=== PATIENT | female | born 1975 | race Caucasian/White ===

== ENCOUNTER 2020-01-21 00:23 | Emergency (ER) | payer SELFPAY ==
--- NOTE | 2020-01-21 00:34 | ED.AMS ---
HPI - Altered Mental Status General Chief Complaint: Alcohol Stated Complaint: alchol Source: patient Mode of arrival: EMS Limitations: intoxication History of Present Illness HPI narrative: 44 y.o. became intoxicated partying tonight. She got to the point of being in and out of consciousness . Ambulance personal aroused her on a outdoor bench, she stumbled with assistance to the ambulance, but was completely disoriented. En route she vomited and was incontinent of urine. She recalls events from earlier in the evening but does not recall events after drinking 2 - 3 beers. She typically drinks 1 - 2 beers once a month. She denies falling or hitting or head. Denies headache. No seizure disorder. She has migraine headaches, takes trazadone prn. Did not take it last PM. She takes topiramate BID (per pt). Related Data Home Medications Medication Instructions Recorded Confirmed multivitamin 1 tablet PO DAILY 01/21/20 01/21/20 paroxetine HCl 30 mg PO DAILY 01/21/20 01/21/20 sumatriptan succinate 100 mg PO PRN PRN 01/21/20 01/21/20 topiramate 50 mg PRN PRN 01/21/20 01/21/20 trazodone 50 mg PO HS 01/21/20 01/21/20 Allergies Allergy/AdvReac Type Severity Reaction Status Date / Time No Known Drug Allergies Allergy Unknown Verified 08/08/14 11:40 Review of Systems Constitutional: Constitutional: Denies chills and Denies fever(s) Eyes: Eyes: Denies change in vision ENT: Denies dizziness Cardiovascular: Cardiovascular: Denies chest pain Respiratory: Respiratory: Denies dyspnea Gastrointestinal: Gastrointestinal: Denies abdominal pain and Denies diarrhea Genitourinary: Genitourinary: Denies dysuria Comments: TAkes OCPs daily which has resulted in amenorrhea for months. 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 Speech is slurred. Const: General: cooperative and no acute distress; No alert Nutritional Appearance: well nourished Orientation/consciousness: patient oriented x3 Limitations: no limitations HENMT: Head: normal to inspection, atraumatic, no abrasions, no hematomas, no lacerations, no raccoon eyes and no scalp tenderness General nose exam: Normal external nose present and Normal nares present Face and sinus: sinuses nontender Mouth: Yes Normal oral and palatal mucosa present and Yes moist mucous membranes Throat: posterior oropharynx normal Eyes: General: appearance normal, both eyes and all related structures Pupils: Equal, round and reactive pupils present and Other pupil findings (approximately 4 mm) EOM: EOMs intact bilaterally and No Nystagmus present Neck: Neck: normal visual inspection, no lymphadenopathy, nontender and other (supple) Resp: Effort & Inspection: normal respiratory effort Auscultation: clear to auscultation bilaterally Cardio: Rate: regular rate Rhythm: regular rhythm Heart sounds: no murmurs GI: Inspection: normal to inspection GI Palp: No abdominal tenderness Back/Spine/Pelvis: Back: no CVA tenderness Cervical Spine: cervical ROM normal and No Cervical spine tenderness Thoracic/Lumbar Spine: No thoracic and lumbar spine normal to inspection Skin: General skin exam: normal color and no rashes or lesions noted Neuro: General: patient oriented x3 Motor exam (neuro): 5/5 motor strength present throughout Sensory Exam: normal sensation Course Course Emergency Course: Does not remember riding in the ambulance. At 2:41 alert, oriented, walking to b.r. without ataxia. Labs reviewed, Eto
[2020-01-21 00:41] VITALS: BP 97/63; PULSE 89; RESP 20; TEMP 36.4; O2SAT 100
[2020-01-21] MEDS: ONDANSETRON INJ 4 MG/2 ML VIAL IV PUSH (00:51)
[2020-01-21 00:59] VITALS: BP 103/75; PULSE 80; RESP 18; O2SAT 100
--- NOTE | 2020-01-21 01:16 | PC.NURSE ---
Pt.using her cell phone to try to reach family members for ride when d/c home.
[2020-01-21 01:17] LABS: Anion Gap 14.6 mmol/L (7-16); Blood Urea Nitrogen 10 mg/dL (7-18); Carbon Dioxide 28 mmol/L (21-32); Chloride 108 mmol/L (98-108); Estimated CRCL calculation 51 ml/min; Estimated Glomerular Filt Rate > 60; Glucose 98 mg/dL (70-99); Osmolality Calculated 303 mOsm/kg (285-295); Potassium 3.6 mmol/L (3.5-5.1); Sodium 147 mmol/L (136-145)
[2020-01-21 01:18] LABS: Pregnancy On Board Control Positive; Urine Pregnancy Test Negative
[2020-01-21 01:21] LABS: Specific Gravity Ur < 1.005 (1.010-1.035)
[2020-01-21 01:22] LABS: Amphetamine Screen Urine Negative (Negative); Barbiturate Screen Urine Negative (Negative); Benzodiazepines Screen Urine Negative (Negative); Cannabinoid Screen Urine Negative (Negative); Cocaine Screen Urine Negative (Negative); Methadone Screen Urine Negative (Negative); Opiate Screen Urine Negative (Negative); Phencyclidine Screen Urine Negative (Negative)
[2020-01-21 01:26] LABS: Ethanol 218 mg/dL (0-6)
--- NOTE | 2020-01-21 02:15 | PC.NURSE ---
0125 Lab critical value received on alcohol and ERP informed. Will observe and run fluids for next several hrs. and d/c home in AM. Pt. alert, cooperative c POC and trying to find ride home. Pt. resting VSS.
[2020-01-21 02:16] VITALS: BP 105/65; PULSE 80; RESP 18; O2SAT 100
[2020-01-21 02:45] VITALS: BP 110/65; PULSE 75; RESP 20; O2SAT 100
== END 2020-01-21 02:50 | disposition home or self-care (01) ==
PROVIDERS: Emergency Provider Family Medicine
DX: F10.920 Alcohol use, unspecified with intoxication, uncomplicated (principal)
CPT/HCPCS: 36415; 80048; 80307; 81025; 96372; 99283; J2405

== ENCOUNTER 2024-05-03 13:52 | Outpatient (CLI) | payer BC, SELFPAY ==
[2024-05-03 14:15] LABS: Basophils Percent Auto 0.5 % (0.2-1.2); Eosinophils Absolute Auto 0.1 K/mm3 (0-0.3); Eosinophils Percent Auto 1.3 % (0-4.4); Hematocrit 42.7 % (37.0-47.0); Hemoglobin 14.4 g/dL (12.0-15.0); Immature Granulocyte Absolute 0.02 K/mm3 (0.00-0.031); Immature Granulocyte Percent A 0.3 % (0-0.5); Lymphocytes Absolute Auto 1.41 K/mm3 (0.9-3.2); Lymphocytes Percent Auto 22.7 % (18.3-44.2); Mean Corpuscular HGB Conc 33.7 g/dl (32-36); Mean Corpuscular Hemoglobin 31.6 pg (26-34); Mean Corpuscular Volume 93.8 fl (80-100); Mean Platelet Volume 9.9 fl (7.4-10.4); Monocytes Absolute Auto 0.4 K/mm3 (0.1-0.6); Monocytes Percent Auto 5.6 % (2.6-8.5); Neutrophils Absolute Auto 4.3 K/mm3 (1.3-6.7); Neutrophils Percent Auto 69.6 % (45.5-73.1); Platelet Count Result 187 k/mm3 (150-375); Red Blood Count 4.55 M/mm3 (4.2-5.4); Red Cell Distribution Width 12.4 % (11.5-14.5); White Blood Count 6.2 K/mm3 (4.5-10.0)
[2024-05-03 14:26] LABS: Alanine Aminotransferase 14 U/L (6-35); Albumin Level 4.3 g/dL (3.5-5.1); Alkaline Phosphatase 59 U/L (38-126); Anion Gap 6 mmol/L (4-12); Aspartate Amino Transferase 24 U/L (14-36); Bilirubin,Total 0.8 mg/dL (0.2-1.3); Blood Urea Nitrogen 13 mg/dL (7-17); Calcium 8.7 mg/dL (8.4-10.2); Carbon Dioxide 24 mmol/L (22-30); Chloride 111 mmol/L (98-107); Estimated Glomerular Filt Rate 59; Glucose 93 mg/dL (65-110); Potassium 3.8 mmol/L (3.4-5.0); Sodium 141 mmol/L (137-145)
[2024-05-03 17:56] LABS: Free T4 Free Thyroxine 0.84 ng/mL (0.78-2.19); Vitamin D 25 Hydroxy 49.3 ng/mL
== END 2024-05-03 13:53 | disposition home or self-care (01) ==
LOC: ANHLAB 13:54
PROVIDERS: PCP Family Medicine; Visit Provider Family Medicine
DX: E55.9 Vitamin D deficiency, unspecified (principal); R53.83 Other fatigue
CPT/HCPCS: 36415; 80053; 82306; 84439; 84443; 85025

== ENCOUNTER 2024-07-11 12:35 | Emergency (ER) | payer BC, SELFPAY ==
[2024-07-11 12:42] VITALS: BP 121/78; PULSE 95; RESP 18; TEMP 37.2; O2SAT 99
--- NOTE | 2024-07-11 13:38 | ED.GENADULT ---
HPI - General Adult General Chief complaint: Skin/Abscess/Foreign Body Stated complaint: Rash on arms and legs Source: patient Mode of arrival: ambulatory Limitations: no limitations History of Present Illness HPI narrative: Patient presents for evaluation of a pruritic and painful rash to the extremities x4. Symptom onset 6 days ago. No new lotions, soaps, detergents, topical products, foods or medications. She denies any fever, chills, nausea, vomiting, difficulty breathing/swallowing, cough, SOB or other infectious symptoms. No history of similar symptoms. No one around her has similar symptoms. She has not tried any therapies to assist with her symptoms. Related Data Home Medications Medication Instructions Recorded Confirmed norethindrone (contraceptive) 0.35 0.35 mg PO DAILY 02/18/23 06/15/24 mg tablet Allergies Allergy/AdvReac Type Severity Reaction Status Date / Time No Known Allergies Allergy Unverified 06/15/24 11:43 Review of Systems Review of Systems: CONSTITUTIONAL: Denies fever, chills, or sweats. EYES: Denies visual changes, redness, or discharge. ENT: Denies rhinorrhea, congestion, sore throat, or otalgia. CARDIOVASCULAR: Denies chest pain, palpitations, or edema. RESPIRATORY: Denies cough or dyspnea. GASTROINTESTINAL: Denies abdominal pain, nausea, vomiting, or diarrhea. GENITOURINARY: Denies dysuria or hematuria. SKIN: Reports pruritic and painful rash to the extremities x4. MUSCULOSKELETAL: Denies back pain, joint pain, or myalgia. NEUROLOGIC: Denies headache, numbness, dizziness, or weakness. PSYCHIATRIC: Denies anxiety or depression. 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 HEAD: Normocephalic, atraumatic. EYES: PERRLA and EOMI. ENT: Nares clear, no rhinorrhea or epistaxis. Mucous membranes moist. Oropharynx without tonsillar hypertrophy exudate or other lesions. Bilateral TMs pearly trimble nonbulging NECK: Supple. No adenopathy or masses. No carotid bruits or JVD CHEST: Clear to auscultation. No respiratory distress. No wheezes rales or rhonchi HEART: Regular rate and rhythm. No murmur heard. Normal peripheral pulses. ABDOMEN: Soft, nontender, nondistended, normal active bowel sounds. EXTREMITIES: Normal range of motion. No edema. SKIN: There is a pinpoint erythematous rash to the bilateral extremities. Petechiae noted to bilateral extremities NEURO: No focal deficits. Alert and oriented x3. PSYCH: Normal mood and affect. Course Course Emergency Course: This is a 49-year-old female who presented for evaluation of a painful pruritic rash to the extremities x4. Etiology unclear. Discussed options for treatment and elected to proceed with oral steroids. Also provider
== END 2024-07-11 13:49 | disposition home or self-care (01) ==
PROVIDERS: Emergency Provider Nurse Practitioner; PCP Family Medicine
DX: R21 Rash and other nonspecific skin eruption (principal)
CPT/HCPCS: 99213; G0463

== ENCOUNTER 2025-03-05 12:55 | Outpatient (CLI) | payer OTHER, SELFPAY ==
--- NOTE | ~2025-03-05 | MM_ITS ---
EXAMINATION: MM screening mack BI w raad HISTORY: Screening TECHNIQUE: Craniocaudal and mediolateral oblique 3-D tomosynthesis images were obtained and synthetic 2-D images were generated. CAD analysis was submitted and interpreted. COMPARISON: No prior mammogram is available for comparison at this institution. BREAST PARENCHYMAL COMPOSITION: Not dense: There are scattered areas of fibroglandular density. FINDINGS: There are scattered calcifications of the right breast. There is no evidence of suspicious mass, calcification, or architectural distortion to suggest malignancy in either breast. There has be en no suspicious interval change. IMPRESSION: 1. No mammographic evidence of malignancy. 2. Recommend routine screening mammography in one year. BI-RADS Category 1: Negative Reviewed, dictated and finalized at location A.
== END 2025-03-05 12:56 | disposition home or self-care (01) ==
LOC: MICIMG 12:56
PROVIDERS: PCP Obstetrics & Gynecology Gynecology; Visit Provider Family Medicine
DX: Z12.31 Encounter for screening mammogram for malignant neoplasm of breast (principal)
CPT/HCPCS: 77063; 77067